=== PATIENT | female | born 1995 | race Caucasian/White ===

== ENCOUNTER → 2018-07-09 | Outpatient (CLI) | payer OTHER ==
--- NOTE | 2018-07-09 17:45 | Diagnostic Imaging Report ---
EXAM: Renal Ultrasound INDICATION: Recurrent urinary tract infection. ^[id number] ^[id number] COMPARISON: None TECHNIQUE: Transverse and longitudinal images of the kidneys and bladder were obtained. FINDINGS: Right Kidney: Size: 10.7 cm Echogenicity: Normal Parenchymal thickness: Normal Collecting system: No hydronephrosis Stones: None Cyst/Mass: None Left Kidney: Size: 10.8 cm Echogenicity: Normal Parenchymal thickness: Normal Collecting system: No hydronephrosis Stones: None Cyst/Mass: None Bladder: Nonspecific debris in the bladder. No focal bladder wall thickening. Bilateral ureteral jets visualized. Prevoid volume: 348.2 cc Post void volume: 20.1 cc IMPRESSION: 1. Nonspecific debris in the bladder. Recommend correlation with urinalysis. 2. No significant postvoid residuals within the bladder. 3. Normal ultrasound of the kidneys. Signed by: DR. Pramod Benjamin MD on 07/09/2018 5:42 PM
== END ==
LOC: US 16:43
PROVIDERS: ATTEND Urology
DX: N39.0 Urinary tract infection, site not specified (principal)
CPT/HCPCS: 76770

== ENCOUNTER 2025-07-22 07:47 | Emergency (ER) | payer BC ==
[~2025-07-22] VITALS: Ht 149.9 cm; Wt 65.8 kg
[~2025-07-22 07:47] MED LIST: DICYCLOMINE HCL20 MG PO; ONDANSETRON ODT4 MG PO; PROMETHAZINE HC25 M1 PO; XOFLUZA40 MG PO
[2025-07-22] MEDS ORDERED: KETOROLAC TROMETHAMINE 30 MG/ML VIAL IM STA (07:50)
[2025-07-22] MEDS ORDERED: DEXAMETHASONE 4 MG TAB PO STA (07:50)
[2025-07-22 08:00] VITALS: TEMP 98.6
[2025-07-22] MEDS ORDERED: ONDANSETRON HCL 4 MG ORAL DISINTEGRATING TAB PO ONE (08:00)
[2025-07-22 08:15] LABS: BASOPHILS % 0.2 % (0.0-1.0); EOSINOPHILS % 0.1 % (0.0-6.0); LYMPHOCYTES % 9.2 % (18.0-39.1); MONOCYTES % 4.4 % (4.4-11.3); NEUTROPHILS % 85.8 % (38.7-80.0); RED CELL DISTRIBUTION WIDTH 12.2 % (11.7-14.4)
[2025-07-22] MEDS: KETOROLAC TROMETHAMINE 30 MG/ML VIAL IV STA (08:19)
[2025-07-22] MEDS: DEXAMETHASONE SOD PHOS 10 MG/1 ML VIAL IV ONE (08:19)
[2025-07-22] MEDS: ONDANSETRON HCL INJ 2MG/ML 2ML 2 MG/ML VIAL IV STA (08:19)
[2025-07-22] MEDS: SODIUM CHLORIDE 0.9% 1000ML 1,000 ML IV SCH (08:19)
[2025-07-22 08:43] LABS: EST GLOMERULAR FILTRATION RATE 123.0 ML/MIN (>=60)
[2025-07-22 09:00] VITALS: PULSE 86; RESP 19; O2SAT 100
[2025-07-22] MEDS ORDERED: AMOX TR-K CLV1 EAC2 PO (09:04)
== END 2025-07-22 09:23 | disposition home or self-care (01) ==
LOC: ER 07:51
DX: R09.89 Other specified symptoms and signs involving the circulatory and respiratory systems (principal); U07.1 COVID-19
CPT/HCPCS: 36415; 80053; 84702; 85025; 99284; J1100; J1885; J2405; J7030